=== PATIENT | male | born 1975 | race Caucasian/White ===

== ENCOUNTER 2017-07-05 19:12 | Emergency (ER) | payer SELFPAY ==
[~2017-07-05] VITALS: Ht 172.7 cm; Wt 81.6 kg
--- NOTE | 2017-07-05 19:12 | NUR ---
PT [address]IB[facility] PATIENT FOUND SLEEPING ON SIDEWALK +ETOH, NAD NOTED, VSS, RESP EVEN AND UNLABORED, PT PUT ON MONITOR, WAITING FOR MD GANDHI.
--- NOTE | 2017-07-05 21:23 | NUR ---
Patient is resting comfortably in bed with eyes closed. Easily aroused. VSS
--- NOTE | 2017-07-05 23:28 | NUR ---
Patient is resting comfortably in bed with eyes closed. Easily aroused. VSS
--- NOTE | 2017-07-06 01:42 | NUR ---
Patient is resting comfortably in bed with eyes closed. Easily aroused. VSS
--- NOTE | 2017-07-06 03:41 | NUR ---
Patient is resting comfortably in bed with eyes closed. Easily aroused. VSS
--- NOTE | 2017-07-06 04:21 | NUR ---
Patient is resting comfortably in bed with eyes closed. Easily aroused. VSS
--- NOTE | 2017-07-06 04:58 | NUR ---
Patient given written and verbal discharge instructions. Patient verbalizes understanding of instructions. Patient is ambulatory with steady gait. Refuses offer of alf placement. Patient given list of available shelters in surrounding area.
[2017-07-06 04:59] VITALS: BP 115/71
== END 2017-07-06 05:00 | disposition home or self-care (01) ==
LOC: ER 19:16 → EDBD 19:16 → ER 07-06 05:00
DX: F10.129 Alcohol abuse with intoxication, unspecified (principal); Z59.0 Homelessness
CPT/HCPCS: 36415; 82962; 99283; A4606; Z7610